=== PATIENT | female | born 1960 | race American Indian/Alaskan Native ===

== ENCOUNTER 2016-08-01 20:46 | Emergency (ER) | payer SELFPAY ==
[2016-08-01 20:56] VITALS: BP 148/95
--- NOTE | 2016-08-01 21:57 | XRay Report ---
FINAL REPORT EXAM: XR FOOT 3 RT HISTORY: Impact, toe pain 4th TECHNIQUE: Right foot three views PRIORS: None. FINDINGS: There is some mild irregularity at the head of the 4th proximal phalanx could reflect nondisplaced fracture. Otherwise no focal bony abnormalities are identified. The joint spaces are within normal limits. No radiopaque foreign body seen. IMPRESSION: Questionable nondisplaced fracture of the head proximal phalanx of the 4th toe. If continuing clinical concern toe series could be obtained for further evaluation
--- NOTE | 2016-08-02 00:04 | Emergency Department Report ---
ED Lower Extremity HPI - General Chief Complaint: Extremity Injury, Lower Stated Complaint: R FOOT PAIN Time Seen by Provider: 08/01/16 23:10 Source: patient Mode of arrival: Ambulatory Limitations: No Limitations - History of Present Illness MD Complaint: foot injury Onset/Timin -: days(s) Injury: Foot: Right Type of Injury: blunt Place: home Severity: moderate Severity scale (0 -10): 3 Improves With: immobilization Worsens With: movement, palpation Context: direct blow Other Symptoms: other (none) Treatments Prior to Arrival: other (none) - Related Data Previous Rx's Medication Instructions Recorded Last Taken Type Acetaminophen/Codeine [Tylenol 1 tab PO Q6H PRN #24 tab 08/02/16 Unknown Rx /Codeine # 3 tab] Allergies Allergy/AdvReac Type Severity Reaction Status Date / Time No Known Allergies Allergy Verified 08/01/16 20:50 ED Review of Systems ROS: Stated complaint: R FOOT PAIN Other details as noted in HPI Constitutional: denies: chills, fever Eyes: denies: eye pain, eye discharge, vision change ENT: denies: ear pain, throat pain Respiratory: denies: cough, shortness of breath, wheezing Cardiovascular: denies: chest pain, palpitations Endocrine: no symptoms reported Gastrointestinal: denies: abdominal pain, nausea, diarrhea Genitourinary: denies: urgency, dysuria, discharge Musculoskeletal: back pain, arthralgia, myalgia. denies: joint swelling Skin: denies: rash, lesions Neurological: denies: headache, weakness, paresthesias Psychiatric: denies: anxiety, depression Hematological/Lymphatic: denies: easy bleeding, easy bruising ED Past Medical Hx - Past Medical History Previous Medical History?: No - Surgical History Past Surgical History?: No - Social History Smoking Status: Current Every Day Smoker Substance Use Type: Alcohol, Other - Medications Home Medications: Home Medications Medication Instructions Recorded Confirmed Last Taken Type Acetaminophen/Codeine [Tylenol 1 tab PO Q6H PRN #24 tab 08/02/16 Unknown Rx /Codeine # 3 tab] ED Physical Exam - General Limitations: No Limitations General appearance: alert, in no apparent distress - Head Head exam: Present: atraumatic, normocephalic - Eye Eye exam: Present: normal appearance - ENT ENT exam: Present: mucous membranes moist - Neck Neck exam: Present: normal inspection - Respiratory Respiratory exam: Present: normal lung sounds bilaterally. Absent: respiratory distress - Cardiovascular Cardiovascular Exam: Present: regular rate, normal rhythm. Absent: systolic murmur, diastolic murmur, rubs, gallop - GI/Abdominal GI/Abdominal exam: Present: soft, normal bowel sounds - Rectal Rectal exam: Present: deferred - Expanded Lower Extremity Exam Right Upper Leg exam: Present: normal inspection Knee exam: Present: normal inspection Lower Leg exam: Present: normal inspection Ankle exam: Present: normal inspection Foot/Toe exam: Present: tenderness, ecchymosis, erythema. Absent: swelling, abrasion, laceration, deformity, crepidus, dislocation, amputation, puncture wound, foreign body, calcaneal tenderness, tenderness at base of 5th metatarsal , nail avulsion, subungual hematoma Neuro vascular tendon exam: Present: no vascular compromise, significant pain with passive ROM of distal joint. Absent: motor deficit, sensory deficit, tendon deficit, pallor, foot drop, peroneal nerve deficit Gait: Positive: observed and limited by pain - Back Exam Back exam: Present: normal inspection - Neurological Exam Neurological exam: Present: alert, oriented X3 - Psychiatric Psychiatric exam: Present: normal affect, normal mood - Skin Skin exam: Present: warm, dry, intact, normal color. Absent: rash ED Course Vital Signs 08/01/16 20:51 Temperature 98.5 F Pulse Rate 96 H Respiratory 18 Rate Blood Pressure 148/95 [Right] O2 Sat by Pulse 99 Oximetry ED Lower Extremity MDM - Radiology Data Radiology results: report reviewed, image reviewed questionable 4th distal fracture nondisplaced - Medical Decision Making pt is a 55 y/o aaf who presents s/p dropping a weedeater on her right 4 toe this afternoon symptoms include pain and bruising pain is 5/10 exacerbated by palpation and movement pain is relieve by rest, exam as noted no laceration miler right 4th toe erythema and ecchymosis, no deformity pain to palpation , ppepb+2 SIDE SAWYER<3 secs bilat, Xray : ? 4 th distal phalynx fracture , plan: ortho shoe , follow up with ortho, Tylenol #3 prn pain pt refuses lortab pt is a/o x 3 ambulatory dc'd to self at this time, pt verbalized understanding and agreement with discharge plan. Critical care attestation.: If time is entered above; I have spent that time in minutes in the direct care of this critically ill patient, excluding procedure time. ED Disposition Clinical Impression: Closed fracture of right toe Qualifiers: Encounter type: initial encounter Toe: lesser toe Phalanx: distal Fracture alignment: nondisplaced Qualified Code(s): S92.534A - Nondisplaced fracture of distal phalanx of right lesser toe(s), initial encounter for closed fracture Disposition: TO HOME OR SELFCARE Is pt being admited?: No Does the pt Need Aspirin: No Condition: Good Instructions: Toe Fracture (ED) Prescriptions: Acetaminophen/Codeine [Tylenol /Codeine # 3 tab] 1 tab PO Q6H PRN #24 tab PRN Reason: Pain Referrals: PRIMARY CARE, [Primary Care Provider] - 3-5 Days Time of Disposition: 00:07
== END 2016-08-02 00:40 | disposition home or self-care (01) ==
LOC: ED 20:46
DX: S92.534A Nondisplaced fracture of distal phalanx of right lesser toe(s), initial encounter for closed fracture (principal); F17.200 Nicotine dependence, unspecified, uncomplicated; X58.XXXA Exposure to other specified factors, initial encounter; Y93.89 Activity, other specified; Y99.8 Other external cause status; Y92.89 Other specified places as the place of occurrence of the external cause